=== PATIENT | female | born 1980 | race Caucasian/White ===

== ENCOUNTER 2017-07-21 19:41 | Emergency (ER) | payer SELFPAY ==
[~2017-07-21] VITALS: Ht 157.5 cm; Wt 46.4 kg
[~2017-07-21 19:41] MED LIST: IBUP1TAB7 PO
[2017-07-21 20:10] VITALS: BP 139/82; PULSE 85; RESP 18; TEMP 98.5; O2SAT 97
--- NOTE | 2017-07-21 21:39 | PD ---
HPI Chief Complaint: Head Injury Time Seen by Provider: 21:39 Travel History International Travel<30 days: No Contact w/Intl Traveler<30days: No Traveled to known affect area: No History of Present Illness HPI 36-year-old female came to the emergency room with history of feeling dizzy and lightheaded. This is been going on for past couple days. Yesterday she passed out and hit her head. She had a scalp laceration on the back of her head. However she did not come in then and decided to come in today. Currently she is awake and answering questions appropriately. She went to the restroom to give a urine sample and the gait was steady. Vital signs are stable. Patient does drink alcohol and says that lately she has been drinking a little more than she should. No chest pain or headache. [facility] Past Medical History Narrative Medical List of her past medical, surgical, social and family history is reviewed from the nursing note. Diminished Hearing: No ?: Not LMP: 1 week ago Tubal Ligation: Yes Social History Alcohol Use: Yes Tobacco Use: No Substance Use: No Allergies-Medications (Allergen,Severity, Reaction): Coded Allergies: codeine (Verified Allergy, Unknown, 02/19/17) Comments List of her allergies reviewed from the nursing note. Reported Meds & Prescriptions Reported Meds & Active Scripts Active Macrobid (Nitrofurantoin Monoh/Nitrofur Macro) 100 Mg Cap 100 Mg PO BID 7 Days Ibuprofen 800 Mg Tab 800 Mg PO Q6HR PRN Narrative Medication List of her home medications reviewed from the nursing note. Review of Systems Except as stated in HPI: all other systems reviewed are Neg Neurologic: Positive: Syncope Physical Exam Narrative GENERAL: Awake, alert, mild distress SKIN: Focused skin assessment warm/dry. HEAD: Atraumatic. Normocephalic. EYES: Pupils equal and round. No scleral icterus. No injection or drainage. ENT: No nasal bleeding or discharge. Mucous membranes pink and moist. NECK: Trachea midline. No JVD. CARDIOVASCULAR: Regular rate and rhythm. No murmur appreciated. RESPIRATORY: No accessory muscle use. Clear to auscultation. Breath sounds equal bilaterally. GASTROINTESTINAL: Abdomen soft, non-tender, nondistended. Hepatic and splenic margins not palpable. MUSCULOSKELETAL: No obvious deformities. No clubbing. No cyanosis. No edema. NEUROLOGICAL: Awake and alert. No obvious cranial nerve deficits. Motor grossly within normal limits. Normal speech. PSYCHIATRIC: Appropriate mood and affect; insight and judgment normal. Data Data Last Documented VS Vital Signs Date Time Temp Pulse Resp B/P (MAP) Pulse Ox O2 Delivery O2 Flow Rate FiO2 07/22/17 01:17 07/22/17 00:34 85 16 07/21/17 21:53 98.4 98 Room Air Orders Orders Ct Brain W/O Iv Contrast(Rout) (07/21/17 ) Ed Urine Pregnancytest Poc (07/21/17 20:13) Urinalysis - C+S If Indicated (07/21/17 22:22) Orthostatic Vital Signs (07/21/17 22:22) Electrocardiogram (07/21/17 ) Complete Blood Count With Diff (07/21/17 23:09) Comprehensive Metabolic Panel (07/21/17 23:09) Sodium Chlor 0.9% 1000 Ml Inj (Ns 1000 M (07/21/17 23:15) Urine Culture (07/21/17 22:30) Nitrofurantoin Monohyd Macrocr (Macrobid (07/22/17 00:00) Potassium Chloride (Kcl) (07/22/17 00:15) Ed Discharge Order (07/22/17 00:36) Labs Laboratory Tests Test 07/21/17 22:30 07/21/17 23:20 Urine Color YELLOW Urine Turbidity CLOUDY Urine pH 6.0 Urine Specific [place] 1.025 Urine Protein 30 mg/dL Urine Glucose (UA) NEG mg/dL Urine Ketones 40 mg/dL Urine Occult Blood NEG Urine Nitrite NEG Urine Bilirubin NEG Urine Urobilinogen LESS THAN 2.0 MG/DL Urine Leukocyte Esterase TRACE Urine WBC 2 /hpf Urine Squamous Epithelial Cells 12 /hpf Urine Bacteria MANY /hpf Urine Mucus MANY /lpf Microscopic Urinalysis Comment CULTURE INDICATED White Blood Count 4.4 TH/MM3 Red Blood Count 3.76 MIL/MM3 Hemoglobin 12.4 GM/DL Hematocrit 36.0 % Mean Corpuscular Volume 95.8 FL Mean Corpuscular Hemoglobin 32.9 PG Mean Corpuscular Hemoglobin Concent 34.4 % Red Cell Distribution Width 13.6 % Platelet Count 237 TH/MM3 Mean Platelet Volume 6.8 FL Neutrophils (%) (Auto) 40.3 % Lymphocytes (%) (Auto) 47.9 % Monocytes (%) (Auto) 9.2 % Eosinophils (%) (Auto) 1.3 % Basophils (%) (Auto) 1.3 % Neutrophils # (Auto) 1.8 TH/MM3 Lymphocytes # (Auto) 2.1 TH/MM3 Monocytes # (Auto) 0.4 TH/MM3 Eosinophils # (Auto) 0.1 TH/MM3 Basophils # (Auto) 0.1 TH/MM3 CBC Comment DIFF FINAL Differential Comment Blood Urea Nitrogen 9 MG/DL Creatinine 0.60 MG/DL Random Glucose 123 MG/DL Total Protein 7.7 GM/DL Albumin 3.8 GM/DL Calcium Level 8.7 MG/DL Alkaline Phosphatase 64 U/L Aspartate Amino Transf (AST/SGOT) 50 U/L Alanine Aminotransferase (ALT/SGPT) 42 U/L Total Bilirubin 0.4 MG/DL Sodium Level 140 MEQ/L Potassium Level 3.0 MEQ/L Chloride Level 104 MEQ/L Carbon Dioxide Level 26.0 MEQ/L Anion Gap 10 MEQ/L Estimat Glomerular Filtration Rate 114 ML/MIN [facility] Medical Decision Making Medical Screen Exam Complete: Yes Emergency Medical Condition: Yes Medical Record Reviewed: Yes Interpretation(s) Twelve-lead EKG was reviewed by me. Normal sinus rhythm, right axis deviation, lateral T-wave inversion. Heart rate of 71 bpm. Differential Diagnosis Orthostatic hypertension, intracranial bleed, electrolyte abnormality, dehydration Narrative Course 12:[address] was negative for any intracranial bleed. Patient has sinusitis. Blood test results show hypokalemia. UA is suggestive of some ketones and UTI. Patient was given p.o. potassium replacement and Macrobid. She was given 1 L of IV fluid bolus and repeat orthostatic vital signs have resolved to more normal. I will discharge her home. Procedures EKG Prior to Arrival: No Diagnosis Primary Impression: Orthostatic hypotension Additional Impressions: Syncope Qualified Codes: R55 - Syncope and collapse Hypokalemia UTI (urinary tract infection) Qualified Codes: N39.0 - Urinary tract infection, site not specified Alcohol dependence Qualified Codes: F10.288 - Alcohol dependence with other alcohol-induced disorder Referrals: Primary Care Physician Additional Instructions: Please return to the ER if condition worsens any other new concerns. You need to drink alcohol in moderation and eat healthy and drink lots of fluid. Take the antibiotic as per the prescription direction. Follow-up with your primary care. Med/Other Pt SpecificInfo: Prescription(s) given Scripts Nitrofurantoin Monohydrate Macrocrystals (Macrobid) 100 Mg Cap 100 MG PO BID for Infection for 7 Days, #14 CAP 0 Refills Prov: Christiane Hobbs MD 07/22/17 Disposition: 01 DISCHARGE HOME Condition: Stable Christiane Hobbs MD Jul 21, 2017 21:39
[2017-07-21 21:53] VITALS: BP 151/80; PULSE 87; RESP 16; TEMP 98.4; O2SAT 98
[2017-07-21 23:06] VITALS: BP 159/96; RESP 16
[2017-07-21 23:07] VITALS: BP_SYST 129; BP_SYST 149; BP_DIAS 91; BP_DIAS 93; RESP 16
[2017-07-21] MEDS ORDERED: SODIUM CHLOR 0.9% 1000 ML INJ 1,000 ML IV ONE (23:15)
[2017-07-21 23:19] LABS: BACTERIA, URINE MANY /hpf; BILIRUBIN, URINE NEG (NEG); BLOOD, URINE NEG (NEG); GLUCOSE,URINE NEG (NEG); KETONE, URINE 40 mg/dL (NEG); MUCUS URINE MANY /lpf (OCC); NITRITE,URINE NEG (NEG); SQUAMOUS EPITHELIAL CELL URINE 12 /hpf (0-5); URINE COLOR YELLOW (YELLW/STRAW); URINE LEUKOCYTE ESTERASE TRACE (NEG)
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
[2017-07-21 23:45] LABS: AUTOMATED NEUTROPHIL # 1.8 TH/MM3 (1.8-7.7); BASOPHIL # 0.1 TH/MM3 (0-0.2); BASOPHIL % 1.3 % (0.0-2.0); EOSINOPHIL # 0.1 TH/MM3 (0-0.4); EOSINOPHIL % 1.3 % (0.0-4.0); HEMOGLOBIN 12.4 GM/DL (11.6-15.3); LYMPH % 47.9 % (9.0-44.0); LYMPHOCYTE # 2.1 TH/MM3 (1.0-4.8); MEAN CELL VOLUME 95.8 FL (80.0-100.0); MEAN CORPUSCULAR HEMOGLOBIN 32.9 PG (27.0-34.0); MEAN CORPUSCULAR HGB CONC 34.4 % (32.0-36.0); MEAN PLATELET VOLUME 6.8 FL (7.0-11.0); MONO % 9.2 % (0.0-8.0); MONOCYTE # 0.4 TH/MM3 (0-0.9); NEUT % 40.3 % (16.0-70.0); PLATELET COUNT 237 TH/MM3 (150-450); RED BLOOD COUNT 3.76 MIL/MM3 (4.00-5.30); RED CELL DISTRIBUTION WIDTH 13.6 % (11.6-17.2); WHITE BLOOD COUNT 4.4 TH/MM3 (4.0-11.0)
[2017-07-22] MEDS ORDERED: NITROFURANTOIN MONOHYD MACROCR 100 MG CAP PO ONE
[2017-07-22 00:01] LABS: ALBUMIN 3.8 GM/DL (3.4-5.0); AST (GOT) 50 U/L (15-37); BLOOD UREA NITROGEN 9 MG/DL (7-18); CALCIUM 8.7 MG/DL (8.5-10.1); CHLORIDE 104 MEQ/L (98-107); GLOMERULAR FILTRATION RATE 114 ML/MIN (>89); GLUCOSE,RANDOM 123 MG/DL (74-106); SODIUM (NA) 140 MEQ/L (136-145)
[2017-07-22 00:02] LABS: ALT (GPT) 42 U/L (10-53)
[2017-07-22 00:04] LABS: ALKALINE PHOSPHATASE 64 U/L (45-117); TOTAL BILIRUBIN ADULT 0.4 MG/DL (0.2-1.0); TOTAL PROTEIN 7.7 GM/DL (6.4-8.2)
[2017-07-22] MEDS ORDERED: POTASSIUM CHLORIDE 20 MEQ CONTROLLED RELEASE TAB PO ONE (00:15)
[2017-07-22 00:34] VITALS: BP_SYST 129; BP_SYST 135; BP_SYST 151; BP_DIAS 84; BP_DIAS 92; BP_DIAS 98; RESP 16
[2017-07-22] MEDS ORDERED: MACR100C2 PO (00:39)
--- NOTE | 2017-07-22 16:11 | EKG ---
Date Performed: 07/21/2017 Time Performed: 22:59:40 PTAGE: 36 years EKG: ECTOPIC ATRIAL RHYTHM MARKED RIGHT AXIS DEVIATION MODERATE ST DEPRESSION ABNORMAL ECG NO PREVIOUS TRACING DOCTOR: Segundo uQintanilla Interpretating Date/Time 07/22/2017 16:08:23
== END 2017-07-22 01:17 | disposition home or self-care (01) ==
LOC: NED 19:41 → NEPD 07-22 01:17
DX: I95.1 Orthostatic hypotension (principal); E87.6 Hypokalemia; N39.0 Urinary tract infection, site not specified; F10.288 Alcohol dependence with other alcohol-induced disorder
CPT/HCPCS: 70450; 80053; 81001; 84703; 85025; 87086; 93005; 96360; 99284; J7030

== ENCOUNTER 2017-08-04 17:35 | Emergency (ER) | payer OTHER ==
[~2017-08-04 17:35] MED LIST changes: +MACR100C2 PO
[2017-08-04 17:40] VITALS: BP 113/66; PULSE 99; RESP 16; TEMP 98.9; O2SAT 97
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
[2017-08-04 18:23] LABS: AUTOMATED NEUTROPHIL # 6.6 TH/MM3 (1.8-7.7); BASOPHIL # 0.1 TH/MM3 (0-0.2); EOSINOPHIL # 0.1 TH/MM3 (0-0.4); EOSINOPHIL % 0.7 % (0.0-4.0); HEMATOCRIT 40.4 % (35.0-46.0); HEMOGLOBIN 13.7 GM/DL (11.6-15.3); LYMPH % 14.1 % (9.0-44.0); LYMPHOCYTE # 1.2 TH/MM3 (1.0-4.8); MEAN CELL VOLUME 96.4 FL (80.0-100.0); MEAN CORPUSCULAR HEMOGLOBIN 32.7 PG (27.0-34.0); MEAN CORPUSCULAR HGB CONC 33.9 % (32.0-36.0); MEAN PLATELET VOLUME 6.5 FL (7.0-11.0); MONO % 8.7 % (0.0-8.0); MONOCYTE # 0.8 TH/MM3 (0-0.9); NEUT % 75.5 % (16.0-70.0); PLATELET COUNT 255 TH/MM3 (150-450); RED BLOOD COUNT 4.19 MIL/MM3 (4.00-5.30); RED CELL DISTRIBUTION WIDTH 14.1 % (11.6-17.2); WHITE BLOOD COUNT 8.7 TH/MM3 (4.0-11.0)
[2017-08-04 18:44] LABS: ALT (GPT) 87 U/L (10-53); AST (GOT) 180 U/L (15-37); BICARBONATE 23.1 MEQ/L (21.0-32.0); BLOOD UREA NITROGEN 17 MG/DL (7-18); CALCIUM 8.5 MG/DL (8.5-10.1); CHLORIDE 108 MEQ/L (98-107); CREATININE 0.61 MG/DL (0.50-1.00); GLOMERULAR FILTRATION RATE 112 ML/MIN (>89); GLUCOSE,RANDOM 80 MG/DL (74-106); SODIUM (NA) 144 MEQ/L (136-145)
[2017-08-04 18:54] LABS: ALKALINE PHOSPHATASE 84 U/L (45-117); TOTAL BILIRUBIN ADULT 0.5 MG/DL (0.2-1.0); TOTAL PROTEIN 8.4 GM/DL (6.4-8.2)
[2017-08-04 18:56] LABS: ACETAMINOPHEN LESS THAN 2.0 MCG/ML (10.0-30.0)
[2017-08-04] MEDS ORDERED: ONDANSETRON ODT 4 MG TAB PO PRN (19:15)
[2017-08-04] MEDS ORDERED: LORazepam 2 MG TAB PO PRN (19:15)
[2017-08-04] MEDS ORDERED: FLUMAZENIL 0.5 MG/5 ML VIAL IV PUSH PRN (19:15)
[2017-08-04] MEDS ORDERED: LORazepam 2 MG/ML VIAL IV PUSH PRN ×4 (19:15)
[2017-08-04] MEDS: LORazepam 1 MG TAB PO PRN (23:29)
[2017-08-05] MEDS: LORazepam 1 MG TAB PO PRN (08:36)
--- NOTE | 2017-08-05 09:04 | PD ---
Physical Exam Time Seen by Provider: 09:02 Narrative The patient is clinically sober at this time. I reevaluated the patient and she reports suicidal ideation. She has no plan. She has history of suicidal attempt by cutting her wrists and overdosing. She recently lost her job, got kicked out of the place that she was living out and her significant other is in skilled nursing. She is feeling down and depressed. She is requesting psychiatric evaluation. Data Data Last Documented VS Vital Signs Date Time Temp Pulse Resp B/P (MAP) Pulse Ox O2 Delivery O2 Flow Rate FiO2 08/04/17 17:40 98.9 99 16 113/66 (82) 97 Room Air Orders Orders Complete Blood Count With Diff (08/04/17 17:45) Comprehensive Metabolic Panel (08/04/17 17:45) Thyroid Stimulating Hormone (08/04/17 17:45) Psych Screen (08/04/17 17:45) Drug Screen, Random Urine (08/04/17 17:45) Alcohol (Ethanol) (08/04/17 17:45) Salicylates (Aspirin) (08/04/17 17:45) Tylenol (Acetaminophen) (08/04/17 17:45) Ed Urine Pregnancytest Poc (08/04/17 18:16) Alcohol Withdrawal Asmt-Ciwa ONCE (08/04/17 19:02) Ondansetron Odt (Zofran Odt) (08/04/17 19:15) Flumazenil Inj (Romazicon Inj) (08/04/17 19:15) Lorazepam (Ativan) (08/04/17 19:15) Lorazepam Inj (Ativan Inj) (08/04/17 19:15) Lorazepam (Ativan) (08/04/17 19:15) Lorazepam Inj (Ativan Inj) (08/04/17 19:15) Lorazepam Inj (Ativan Inj) (08/04/17 19:15) Lorazepam Inj (Ativan Inj) (08/04/17 19:15) Diet Regular Basic (08/05/17 Breakfast) Labs Laboratory Tests Test 08/04/17 18:03 08/04/17 21:30 White Blood Count 8.7 TH/MM3 Red Blood Count 4.19 MIL/MM3 Hemoglobin 13.7 GM/DL Hematocrit 40.4 % Mean Corpuscular Volume 96.4 FL Mean Corpuscular Hemoglobin 32.7 PG Mean Corpuscular Hemoglobin Concent 33.9 % Red Cell Distribution Width 14.1 % Platelet Count 255 TH/MM3 Mean Platelet Volume 6.5 FL Neutrophils (%) (Auto) 75.5 % Lymphocytes (%) (Auto) 14.1 % Monocytes (%) (Auto) 8.7 % Eosinophils (%) (Auto) 0.7 % Basophils (%) (Auto) 1.0 % Neutrophils # (Auto) 6.6 TH/MM3 Lymphocytes # (Auto) 1.2 TH/MM3 Monocytes # (Auto) 0.8 TH/MM3 Eosinophils # (Auto) 0.1 TH/MM3 Basophils # (Auto) 0.1 TH/MM3 CBC Comment DIFF FINAL Differential Comment Blood Urea Nitrogen 17 MG/DL Creatinine 0.61 MG/DL Random Glucose 80 MG/DL Total Protein 8.4 GM/DL Albumin 4.0 GM/DL Calcium Level 8.5 MG/DL Alkaline Phosphatase 84 U/L Aspartate Amino Transf (AST/SGOT) 180 U/L Alanine Aminotransferase (ALT/SGPT) 87 U/L Total Bilirubin 0.5 MG/DL Sodium Level 144 MEQ/L Potassium Level 3.9 MEQ/L Chloride Level 108 MEQ/L Carbon Dioxide Level 23.1 MEQ/L Anion Gap 13 MEQ/L Estimat Glomerular Filtration Rate 112 ML/MIN Thyroid Stimulating Hormone 3rd Gen 0.385 uIU/ML Salicylates Level LESS THAN 1.7 MG/DL Acetaminophen Level LESS THAN 2.0 MCG/ML Ethyl Alcohol Level 322 MG/DL Urine Opiates Screen NEG Urine Barbiturates Screen NEG Urine Amphetamines Screen NEG Urine Benzodiazepines Screen NEG Urine Cocaine Screen NEG Urine Cannabinoids Screen NEG [facility] Supervised Visit with JORGE: No Narrative Course The patient is clinically sober at this time. I reevaluated the patient and she reports suicidal ideation. She has no plan. She has history of suicidal attempt by cutting her wrists and overdosing. She recently lost her job, got kicked out of the place that she was living out and her significant other is in skilled nursing. She is feeling down and depressed. The [place] act has been rescinded at this time and the patient is here now for voluntary psych evaluation. Psych screen pending. Diagnosis Primary Impression: Substance abuse Additional Impression: Suicidal ideation Scripts No Active Prescriptions or Reported Meds Sheri Castaneda Aug 05, 2017 09:04
[2017-08-05 12:00] VITALS: BP 124/62; PULSE 78; RESP 16; TEMP 98.2; O2SAT 98
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
--- NOTE | 2017-08-05 16:50 | PD ---
Physical Exam Time Seen by Provider: 16:47 JOSSY Mata has evaluated patient, lifted the Sargent act and cleared the patient for discharge. Data Data Last Documented VS Vital Signs Date Time Temp Pulse Resp B/P (MAP) Pulse Ox O2 Delivery O2 Flow Rate FiO2 08/05/17 12:00 Room Air 08/04/17 17:40 98.9 99 16 113/66 (82) 97 Orders Orders Complete Blood Count With Diff (08/04/17 17:45) Comprehensive Metabolic Panel (08/04/17 17:45) Thyroid Stimulating Hormone (08/04/17 17:45) Psych Screen (08/04/17 17:45) Drug Screen, Random Urine (08/04/17 17:45) Alcohol (Ethanol) (08/04/17 17:45) Salicylates (Aspirin) (08/04/17 17:45) Tylenol (Acetaminophen) (08/04/17 17:45) Ed Urine Pregnancytest Poc (08/04/17 18:16) Alcohol Withdrawal Asmt-Ciwa ONCE (08/04/17 19:02) Ondansetron Odt (Zofran Odt) (08/04/17 19:15) Flumazenil Inj (Romazicon Inj) (08/04/17 19:15) Lorazepam (Ativan) (08/04/17 19:15) Lorazepam Inj (Ativan Inj) (08/04/17 19:15) Lorazepam (Ativan) (08/04/17 19:15) Lorazepam Inj (Ativan Inj) (08/04/17 19:15) Lorazepam Inj (Ativan Inj) (08/04/17 19:15) Lorazepam Inj (Ativan Inj) (08/04/17 19:15) Diet Regular Basic (08/05/17 Breakfast) Labs Laboratory Tests Test 08/04/17 18:03 08/04/17 21:30 White Blood Count 8.7 TH/MM3 Red Blood Count 4.19 MIL/MM3 Hemoglobin 13.7 GM/DL Hematocrit 40.4 % Mean Corpuscular Volume 96.4 FL Mean Corpuscular Hemoglobin 32.7 PG Mean Corpuscular Hemoglobin Concent 33.9 % Red Cell Distribution Width 14.1 % Platelet Count 255 TH/MM3 Mean Platelet Volume 6.5 FL Neutrophils (%) (Auto) 75.5 % Lymphocytes (%) (Auto) 14.1 % Monocytes (%) (Auto) 8.7 % Eosinophils (%) (Auto) 0.7 % Basophils (%) (Auto) 1.0 % Neutrophils # (Auto) 6.6 TH/MM3 Lymphocytes # (Auto) 1.2 TH/MM3 Monocytes # (Auto) 0.8 TH/MM3 Eosinophils # (Auto) 0.1 TH/MM3 Basophils # (Auto) 0.1 TH/MM3 CBC Comment DIFF FINAL Differential Comment Blood Urea Nitrogen 17 MG/DL Creatinine 0.61 MG/DL Random Glucose 80 MG/DL Total Protein 8.4 GM/DL Albumin 4.0 GM/DL Calcium Level 8.5 MG/DL Alkaline Phosphatase 84 U/L Aspartate Amino Transf (AST/SGOT) 180 U/L Alanine Aminotransferase (ALT/SGPT) 87 U/L Total Bilirubin 0.5 MG/DL Sodium Level 144 MEQ/L Potassium Level 3.9 MEQ/L Chloride Level 108 MEQ/L Carbon Dioxide Level 23.1 MEQ/L Anion Gap 13 MEQ/L Estimat Glomerular Filtration Rate 112 ML/MIN Thyroid Stimulating Hormone 3rd Gen 0.385 uIU/ML Salicylates Level LESS THAN 1.7 MG/DL Acetaminophen Level LESS THAN 2.0 MCG/ML Ethyl Alcohol Level 322 MG/DL Urine Opiates Screen NEG Urine Barbiturates Screen NEG Urine Amphetamines Screen NEG Urine Benzodiazepines Screen NEG Urine Cocaine Screen NEG Urine Cannabinoids Screen NEG MDM Supervised Visit with JORGE: No Narrative Course JOSSY Roberson has evaluated patient, lifted the Sargent act and cleared the patient for discharge. Patient contracts safety. Denies suicidal or homicidal ideations. Patient will be provided community resource packet to [facility] for follow-up. Has friends and family for support. Patient was medically cleared by alternate provider prior to psych screening. Patient has been evaluated by psychiatry and and is now cleared for discharge. Diagnosis Primary Impression: Alcohol abuse Additional Impression: Substance abuse Ruled Out: Suicidal ideation Referrals: [facility] (Out patient) [facility] Primary Care Physician Psychiatrist Perfect[facility] Patient Instructions: Abuse of Alcohol (ED), Alcohol Dependence (ED), Alcohol Intoxication (ED), General Instructions, Mood Disorders (ED), Polysubstance Abuse (ED) Additional Instruction: Contract safety to your self and others Stop drinking alcohol Follow-up in the community with community support, such as Alcoholics Anonymous Follow-up with psychiatry Follow-up with primary care provider Follow-up with Santana Arshad Return to the emergency department immediately with worsening of symptoms Med/Other Pt SpecificInfo: No Change to Meds, No Meds Exist/No RX given Scripts No Active Prescriptions or Reported Meds Disposition: 01 DISCHARGE HOME Condition: Stable Sheri Castaneda [employer] Aug 05, 2017 16:50
[2017-08-05 17:00] VITALS: BP 118/78; PULSE 82; RESP 16; O2SAT 98
== END 2017-08-05 17:31 | disposition home or self-care (01) ==
LOC: NEPD 17:35 → NEPJ 08-05 17:31
DX: F10.129 Alcohol abuse with intoxication, unspecified (principal); F19.10 Other psychoactive substance abuse, uncomplicated; Y90.8 Blood alcohol level of 240 mg/100 ml or more; F31.9 Bipolar disorder, unspecified; F41.9 Anxiety disorder, unspecified; I25.2 Old myocardial infarction; Z88.5 Allergy status to narcotic agent
CPT/HCPCS: 80053; 80307; 84443; 84703; 85025; 99283

== ENCOUNTER 2017-08-21 14:07 | Emergency (ER) | payer SELFPAY ==
[~2017-08-21] VITALS: Ht 157.5 cm; Wt 48.0 kg
[2017-08-21 14:16] VITALS: BP 94/53; PULSE 89; RESP 15; TEMP 98.2; O2SAT 96
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
--- NOTE | 2017-08-21 16:22 | RADRPT ---
EXAM DATE/TIME: 08/21/2017 15:59 [facility] COMPARISON: CT BRAIN W/O CONTRAST, July 21, 2017, 22:50. INDICATIONS : Altered mental status, right paraorbital swelling. RADIATION DOSE: 45.79 CTDIvol (mGy) MEDICAL HISTORY : Cardiovascular disease. SURGICAL HISTORY : Tubal ligation. ENCOUNTER: Initial ACUITY: 1 day PAIN SCALE: 0/10 LOCATION: distal TECHNIQUE: Multiple contiguous axial images were obtained of the head. Using automated exposure control and adj ustment of the mA and/or kV according to patient size, radiation dose was kept as low as reasonably a chievable to obtain optimal diagnostic quality images. DICOM format image data is available electro nically for review and comparison. FINDINGS: CEREBRUM: The ventricles are normal. No evidence of midline shift, mass lesion, hemorrhage or acute infarction . No extra-axial fluid collections are seen. POSTERIOR FOSSA: The cerebellum and brainstem are intact. The 4th ventricle is midline. The cerebellopontine angle i s unremarkable. EXTRACRANIAL: There is a right frontal and ethmoid mucoperiosteal thickening, stable from the prior study. SKULL: The calvaria is intact. No evidence of skull fracture. CONCLUSION: 1. Stable noncontrast head CT without acute intracranial abnormality identified. 2. Chronic right frontal and ethmoid mucoperiosteal thickening. Ramakrishna Romero MD on August 21, 2017 at 16:17 Board Certified Radiologist. This report was verified electronically.
--- NOTE | 2017-08-21 16:39 | RADRPT ---
EXAM DATE/TIME: 08/21/2017 15:59 [facility] COMPARISON: CT BRAIN W/O CONTRAST, August 21, 2017, 15:59. INDICATIONS : Right periorbital bruising and swelling. RADIATION DOSE: 23.28 CTDIvol (mGy) MEDICAL HISTORY : Myocardial infarction. SURGICAL HISTORY : Tubal ligation. ENCOUNTER: Initial ACUITY: 1 day PAIN SCORE: 6/10 LOCATION: Right facial TECHNIQUE: Volumetric scanning of the facial bones was performed. Using automated exposure control and adjustme nt of the mA and/or kV according to patient size, radiation dose was kept as low as reasonably achiev able to obtain optimal diagnostic quality images. DICOM format image data is available electronicall y for review and comparison. FINDINGS: ORBITS: The orbital and infraorbital osseous structures are intact. The retroconal structures have a normal configuration. No radiopaque foreign bodies are seen. NASAL BONE: There are 2 fractures of the nasal bone, mildly displaced involving the anterior and right base. The maxillary spine is intact. ZYGOMATIC ARCHES: Symmetric without evidence of fracture. SINUSES: There is opacification of the right frontal sinus and opacified anterior right ethmoid air cells. Mi ld mucosal thickening in the right maxillary sinus and a rounded area of lucency adjacent to the mola r root and represent a peridental abscess. NASAL CAVITY: The nasal septum is intact and midline. The lacrimal ducts are intact. SOFT TISSUES: No radiopaque foreign bodies seen. No soft-tissue swelling is seen. INTRACRANIAL: No intracranial air seen. CRIBIFORM PLATE: Grossly intact. CONCLUSION: 1. Mildly displaced nasal bone fractures. 2. The orbital rim is intact bilaterally. 3. Right frontal and right ethmoid sinus disease. 4. Mucosal thickening in the lower right maxillary sinus with rounded low density lesion in the poste rior right maxilla, possibly representing a peridental abscess. Johan Canales MD on August 21, 2017 at 16:29 Board Certified Radiologist. This report was verified electronically.
[2017-08-21] MEDS ORDERED: THIAMINE HCL 100 MG TAB PO ONE (17:00)
== END 2017-08-21 18:07 | disposition home or self-care (01) ==
LOC: NEPD 14:07
DX: F10.129 Alcohol abuse with intoxication, unspecified (principal); S02.2XXA Fracture of nasal bones, initial encounter for closed fracture; X58.XXXA Exposure to other specified factors, initial encounter
CPT/HCPCS: 70450; 70486; 84703; 99283

== ENCOUNTER 2017-12-24 14:55 | Inpatient (IN) ==
[2017-12-24] MEDS ORDERED: Sod Chloride 0.9% Inj 1,000 ML IV.SIG ONE (19:26)
[2017-12-24] MEDS ORDERED: Ketorolac Inj 30 MG/ML (IVP) Vial IV.PUSH ONE (19:26)
[2017-12-24 20:07] LABS: Baso # (Auto) 0.1 th/mm3 (0.0-0.2); Baso % (Auto) 0.9 % (0.0-2.0); Eos % (Auto) 0.4 % (0.0-4.0); Hematocrit 26.9 % (35.0-46.0); Hemoglobin 8.9 gm/dL (11.6-15.3); Lymph # (Auto) 1.8 th/mm3 (1.0-4.8); Lymph % (Auto) 24.9 % (9.0-44.0); Mean Corpuscular HGB Conc 33.2 % (32.0-36.0); Mean Corpuscular Hemoglobin 31.2 pg (27.0-34.0); Mean Corpuscular Volume 94.1 fL (80.0-100.0); Mean Platelet Volume 7.1 fL (7.0-11.0); Mono # (Auto) 0.6 th/mm3 (0.0-0.9); Mono % (Auto) 7.7 % (0.0-8.0); Neut # (Auto) 4.9 th/mm3 (1.8-7.7); Neut % (Auto) 66.1 % (16.0-70.0); Platelet Count 229 th/mm3 (150-450); Red Blood Count 2.86 mil/mm3 (4.00-5.30); Red Cell Distribution Width 13.7 % (11.6-17.2); White Blood Count 7.3 th/mm3 (4.0-11.0)
[2017-12-24 20:25] LABS: Bacteria,Urine Moderate /hpf; Bilirubin,Urine Negative (Negative); Clarity,Urine Cloudy (Clear); Color,Urine Yellow (Yellw/Straw); Glucose,Urine (UA) Negative (Negative); Leukocyte Esterase,Urine Negative (Negative); Mucus,Urine Few /lpf (Occasional); Nitrite,Urine Negative (Negative); Specific Gravity,Urine 1.026 (1.002-1.035); Squamous Epithelial Cell,Urine 43 /hpf (0-5)
[2017-12-24 20:31] LABS: Albumin 3.1 g/dL (3.4-5.0); Anion Gap 14 meq/L (5-15); Aspartate Aminotransferase 41 U/L (15-37); Blood Urea Nitrogen 19 mg/dL (7-18); Chloride 107 meq/L (98-107); Glomerular Filtration Rate Greater Than 89 mL/min (>89); Glucose,Random 83 mg/dL (74-106); Lipase 114 U/L (73-393); Potassium 3.6 meq/L (3.5-5.1); Sodium 139 meq/L (136-145)
[2017-12-24 20:35] LABS: Alanine Aminotransferase 30 U/L (10-53); Alkaline Phosphatase 68 U/L (45-117); Total Protein 6.4 g/dL (6.4-8.2)
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
[2017-12-24] MEDS ORDERED: Morphine Inj 4 MG/ML Vial IV.PUSH ONE (20:49)
[2017-12-24] MEDS ORDERED: Acetaminophen 325 MG Tablet PO PRN (21:06)
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
[2017-12-25] MEDS ORDERED: Morphine Sulfate Inj 2 MG/ML Vial IV.PUSH ONE (01:11)
[2017-12-25] MEDS ORDERED: Chlorhexidine Gluconate 2% 1 Pack (2 Cloths) TOPICAL PRN (04:00)
[2017-12-25] MEDS: Morphine Sulfate Inj 2 MG/ML Vial IV.PUSH PRN ×8 (04:40→22:00)
[2017-12-25] MEDS: Chlorhexidine Gluconate 2% 1 Pack (2 Cloths) TOPICAL SCH (06:28)
[2017-12-25] MEDS: Docusate Sodium 100 MG Capsule PO SCH ×2 (09:04→20:04)
[2017-12-25 10:33] LABS: Hematocrit 23.1 % (35.0-46.0); Hemoglobin 7.8 gm/dL (11.6-15.3)
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
[2017-12-25 14:58] LABS: INR 1.1 Ratio; Prothrombin Time 10.7 sec (9.8-11.6)
[2017-12-25] MEDS ORDERED: fentaNYL Citrate Inj 100 MCG/2 ML Ampul ONE (15:37)
[2017-12-25] MEDS ORDERED: ceFAZolin 1 GM Premix Inj 2 GM/100 ML FROZ.PIGGY IV.SIG ONE (16:38)
--- NOTE | 2017-12-25 16:51 | P.RAD ---
Post Procedure Progress Note - Pre Procedure Diagnosis (1) Splenic laceration - Post Procedure Diagnosis (1) Splenic laceration - Procedure Information Procedure Date: 12/25/17 Supervising Radiologist: Young Harris MD Estimated blood loss (mL): 3 Anesthesia: Local, Analgesia, Conscious Sedation - Plan of Activity Patient to Unit: Critical Care Patient Condition: Good See PACS Report for procedural detail/treatment. Vascular - Arterial Procedure left Celiac Procedure: Angiogram, Embolization (splenic artery) - Additional Information Findings: No active hemorrhage. Empiric embolization per trauma surgery service request ( worsening abdominal pain with dropping H/H)
[2017-12-25] MEDS: Pantoprazole Inj 40 MG Vial IV.PUSH SCH (17:38)
[2017-12-25 21:31] LABS: Hematocrit 24.5 % (35.0-46.0); Hemoglobin 8.2 gm/dL (11.6-15.3)
[2017-12-26] MEDS: Morphine Sulfate Inj 2 MG/ML Vial IV.PUSH PRN ×4 (00:15→08:12)
[2017-12-26 05:23] LABS: Baso # (Auto) 0.1 th/mm3 (0.0-0.2); Baso % (Auto) 0.8 % (0.0-2.0); Eos # (Auto) 0.1 th/mm3 (0.0-0.4); Eos % (Auto) 0.9 % (0.0-4.0); Hematocrit 26.3 % (35.0-46.0); Hemoglobin 8.8 gm/dL (11.6-15.3); Lymph # (Auto) 1.3 th/mm3 (1.0-4.8); Lymph % (Auto) 13.1 % (9.0-44.0); Mean Corpuscular HGB Conc 33.6 % (32.0-36.0); Mean Corpuscular Hemoglobin 31.4 pg (27.0-34.0); Mean Corpuscular Volume 93.3 fL (80.0-100.0); Mean Platelet Volume 7.6 fL (7.0-11.0); Mono # (Auto) 0.9 th/mm3 (0.0-0.9); Mono % (Auto) 9.1 % (0.0-8.0); Neut # (Auto) 7.3 th/mm3 (1.8-7.7); Neut % (Auto) 76.1 % (16.0-70.0); Platelet Count 217 th/mm3 (150-450); Red Blood Count 2.82 mil/mm3 (4.00-5.30); Red Cell Distribution Width 13.4 % (11.6-17.2); White Blood Count 9.6 th/mm3 (4.0-11.0)
[2017-12-26 05:51] LABS: Alanine Aminotransferase 21 U/L (10-53); Alkaline Phosphatase 82 U/L (45-117); Anion Gap 8 meq/L (5-15); Aspartate Aminotransferase 26 U/L (15-37); Blood Urea Nitrogen 3 mg/dL (7-18); Calcium 7.9 mg/dL (8.5-10.1); Carbon Dioxide 27.4 meq/L (21.0-32.0); Chloride 104 meq/L (98-107); Glomerular Filtration Rate Greater Than 89 mL/min (>89); Glucose,Random 98 mg/dL (74-106); Potassium 3.3 meq/L (3.5-5.1); Sodium 139 meq/L (136-145); Total Protein 6.3 g/dL (6.4-8.2)
[2017-12-26] MEDS: Chlorhexidine Gluconate 2% 1 Pack (2 Cloths) TOPICAL SCH (06:37)
[2017-12-26] MEDS: Pantoprazole Inj 40 MG Vial IV.PUSH SCH (08:12)
[2017-12-26] MEDS: Docusate Sodium 100 MG Capsule PO SCH ×2 (08:12→20:08)
[2017-12-26] MEDS ORDERED: Morphine Sulfate Inj 2 MG/ML Vial IV.PUSH PRN (09:31)
--- NOTE | 2017-12-26 09:59 | IR ---
EXAM DATE: 12/25/2017 5:36 PM EDT AGE/SEX: 37 years / Female INDICATIONS: Patient has abdominal pain. Patient states she fell and woke up on the floor. CLINICAL DATA: This is the patient's initial encounter. Patient reports that signs and symptoms have been present for 1 day and indicates a pain score of 6/10. MEDICAL/SURGICAL HISTORY: . Mandible fracture, tooth abscess. None. COMPARISON: No prior exams available for comparison. FLUORO TIME (min): 9.24 IMAGE SERIES: 5 ACCESS SITE: Right femoral artery SEDATION TIME (min): 60 CONTRAST (cc): 80 Visipaque (iodixanol) MEDICATION(S): 5 mg midazolam (Versed) IV ; 100 mcg fentanyl (Sublimaze) IV ; ; ; Intra-procedural antibiotics were given as prescribed above. DEVICE(S): Splenic artery 6*3 tornado coil 3 each ; Splenic artery 7*3 tornado coil 3 each ; Splenic artery 8*5 tornado coil 3 each Splenic artery 5*5 coil ; Right common femoral artery Perclose ; ; ; . . PROCEDURE : 1. Ultrasound-guided puncture of the access site. 2. Conscious sedation with continuous EKG and Oximetry monitoring. 3. Angiography of the splenic artery 4. Coil embolization of the splenic artery EXAM DATE: 12/25/2017 5:36 PM EDT AGE/SEX: 37 years / Female INDICATIONS: Patient has abdominal pain. Patient states she fell and woke up on the floor. CLINICAL DATA: This is the patient's initial encounter. Patient reports that signs and symptoms have been present for 1 day and indicates a pain score of 6/10. MEDICAL/SURGICAL HISTORY: . Mandible fracture, tooth abscess. None. COMPARISON: No prior exams available for comparison. FLUORO TIME (min): 924 IMAGE SERIES: 5 ACCESS SITE: Right femoral artery SEDATION TIME (min): 60 CONTRAST (cc): 80 Visipaque (iodixanol) MEDICATION(S): 5 mg midazolam (Versed) IV 100 mcg fentanyl (Sublimaze) IV Intra-procedural antibiotics were given as prescribed above. DEVICE(S): Splenic artery 6*3 tornado coil 3 each Splenic artery 7*3 tornado coil 3 each Splenic artery 8*5 tornado coil 3 each Splenic artery 5*5 coil Right common femoral artery Perclose . . PROCEDURE : 1. Ultrasound-guided puncture of the access site. 2. Angiography of the access site prior to closure device. 3. Conscious sedation with continuous EKG and Oximetry monitoring. 4. Percutaneous closure of the access site. 5. Angiography of the splenic artery 6. Coil embolization of the splenic artery The risks, benefits and alternatives to the procedure were explained and verbal and written consent w as obtained. The site was prepped in sterile fashion. Full sterile technique was used, including ca p, mask, sterile gloves and gown and a large sterile sheet. Hand hygiene and 2% chlorhexidine and/or betadine/alcohol prep was utilized per protocol for cutaneous antisepsis. Sterile gel and sterile p robe cover were utilized for ultrasound guidance. The skin and subcutaneous tissues were infiltrated with local anesthetic solution. With ultrasound and fluoroscopic guidance the selected artery was punctured and a vascular sheath was placed. Angiography of the common femoral artery was performed for evaluation prior to percutaneous closure device placement. A hook catheter was manipulated up into the origin of the celiac axis. Position was confirmed with po sitive contrast. Catheter and wire were manipulated out into the splenic artery pass the pancreatic b ranch. Contrast injection showed normal arborization of the splenic artery with no active hemorrhage. However, case was discussed with the trauma surgery service. Concern for ongoing splenic hemorrhage with increasing abdominal pain and falling hematocrit. Empiric embolization requested. A series of Tornado coils were deployed in the splenic vein to cessation of antegrade flow. A small, proximal branch to the lower pole of the spleen maintained antegrade flow however, the laceration whi ch towards the upper pole of the spleen so no further embolization was pursued. Hemostasis was obtained with the prescribed medicated closure device. Conscious sedation was perform ed with the prescribed dosages and duration as above in the presence of an independent trained radiol ogy nurse to assist in the monitoring of the patient. EKG and oximetry remained stable throughout th e procedure. CONCLUSION: Empiric splenic embolization for splenic laceration as above Electronically signed by: Young Harris MD 12/26/2017 9:57 AM EDT
[2017-12-26 10:17] LABS: Hematocrit 27.3 % (35.0-46.0); Hemoglobin 9.4 gm/dL (11.6-15.3)
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
[2017-12-26] MEDS: chlordiazePOXIDE 25 MG Capsule PO SCH ×2 (15:34→23:57)
[2017-12-26 15:48] LABS: Hematocrit 25.4 % (35.0-46.0); Hemoglobin 8.7 gm/dL (11.6-15.3)
[2017-12-27] MEDS: Chlorhexidine Gluconate 2% 1 Pack (2 Cloths) TOPICAL SCH (05:12)
[2017-12-27] MEDS: Pantoprazole Inj 40 MG Vial IV.PUSH SCH (08:09)
[2017-12-27] MEDS: chlordiazePOXIDE 25 MG Capsule PO SCH (08:09)
[2017-12-27] MEDS: Docusate Sodium 100 MG Capsule PO SCH (08:09)
[2017-12-27 09:34] LABS: Baso # (Auto) 0.1 th/mm3 (0.0-0.2); Baso % (Auto) 0.9 % (0.0-2.0); Eos # (Auto) 0.2 th/mm3 (0.0-0.4); Eos % (Auto) 2.4 % (0.0-4.0); Hematocrit 24.8 % (35.0-46.0); Hemoglobin 8.5 gm/dL (11.6-15.3); Lymph # (Auto) 1.5 th/mm3 (1.0-4.8); Lymph % (Auto) 18.9 % (9.0-44.0); Mean Corpuscular HGB Conc 34.2 % (32.0-36.0); Mean Corpuscular Hemoglobin 31.7 pg (27.0-34.0); Mean Corpuscular Volume 92.7 fL (80.0-100.0); Mean Platelet Volume 7.7 fL (7.0-11.0); Mono # (Auto) 0.9 th/mm3 (0.0-0.9); Neut # (Auto) 5.3 th/mm3 (1.8-7.7); Neut % (Auto) 66.8 % (16.0-70.0); Platelet Count 218 th/mm3 (150-450); Red Blood Count 2.68 mil/mm3 (4.00-5.30); Red Cell Distribution Width 13.3 % (11.6-17.2); White Blood Count 7.9 th/mm3 (4.0-11.0)
[2017-12-27 09:55] LABS: Albumin 2.8 g/dL (3.4-5.0); Anion Gap 9 meq/L (5-15); Blood Urea Nitrogen 6 mg/dL (7-18); Calcium 8.7 mg/dL (8.5-10.1); Carbon Dioxide 26.3 meq/L (21.0-32.0); Chloride 103 meq/L (98-107); Glomerular Filtration Rate Greater Than 89 mL/min (>89); Glucose,Random 103 mg/dL (74-106); Potassium 3.8 meq/L (3.5-5.1); Sodium 138 meq/L (136-145)
[2017-12-27 10:00] LABS: Alanine Aminotransferase 15 U/L (10-53); Alkaline Phosphatase 68 U/L (45-117); Aspartate Aminotransferase 18 U/L (15-37); Total Protein 6.1 g/dL (6.4-8.2)
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
== END 2017-12-27 14:40 | disposition home or self-care (01) ==
LOC: NEPC 14:55 → NEDA 20:46 → NEDH 12-25 02:26 → N03 12-25 06:35 → N06 12-26 11:00
PROVIDERS: ADMIT Surgery; ATTEND Surgery

== ENCOUNTER 2018-01-29 11:09 | Observation (INO) ==
[2018-01-29] MEDS ORDERED: Morphine Sulfate Inj 2 MG/ML Vial IV.PUSH ONE (11:20)
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
[2018-01-29] MEDS ORDERED: Sod Chloride 0.9% Inj 1,000 ML IV.SIG SCH (11:30)
--- NOTE | 2018-01-29 12:01 | XR ---
EXAM DATE: 01/29/2018 11:26 AM EDT AGE/SEX: 37 years / Female INDICATIONS: . Awoke this morning with pain in chest, ribs, jaw, orbits CLINICAL DATA: This is the patient's initial encounter. Patient reports that signs and symptoms have been present for 1 day and indicates a pain score of Nonresponsive. MEDICAL/SURGICAL HISTORY: . fractured spleen . coils for splenic lacerations [place] [facility] [place]. . FINDINGS: PA and lateral views of the chest demonstrate the lungs to be symmetrically aerated without evidence of mass, infiltrate or effusion. The cardiomediastinal contours are unremarkable. Osseous structures are intact. Coils left upper quadrant likely within the splenic vasculature. CONCLUSION: No acute cardiopulmonary disease. Electronically signed by: Dustin Stauffer MD 01/29/2018 11:59 AM EDT
[2018-01-29 12:04] LABS: Baso # (Auto) 0.1 th/mm3 (0.0-0.2); Eos % (Auto) 0.3 % (0.0-4.0); Hematocrit 36.4 % (35.0-46.0); Hemoglobin 11.8 gm/dL (11.6-15.3); Lymph # (Auto) 1.2 th/mm3 (1.0-4.8); Lymph % (Auto) 11.2 % (9.0-44.0); Mean Corpuscular HGB Conc 32.3 % (32.0-36.0); Mean Corpuscular Hemoglobin 29.8 pg (27.0-34.0); Mean Corpuscular Volume 92.4 fL (80.0-100.0); Mean Platelet Volume 7.4 fL (7.0-11.0); Mono # (Auto) 0.8 th/mm3 (0.0-0.9); Mono % (Auto) 7.4 % (0.0-8.0); Neut # (Auto) 8.6 th/mm3 (1.8-7.7); Neut % (Auto) 80.1 % (16.0-70.0); Platelet Count 307 th/mm3 (150-450); Red Blood Count 3.94 mil/mm3 (4.00-5.30); Red Cell Distribution Width 14.7 % (11.6-17.2); White Blood Count 10.7 th/mm3 (4.0-11.0)
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
[2018-01-29 12:13] LABS: Activated Partial Thrombo Time 23.4 sec (24.3-30.1); Prothrombin Time 10.2 sec (9.8-11.6)
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
[2018-01-29 12:27] LABS: Albumin 3.2 g/dL (3.4-5.0); Anion Gap 9 meq/L (5-15); Aspartate Aminotransferase 62 U/L (15-37); Blood Urea Nitrogen 6 mg/dL (7-18); Calcium 8.2 mg/dL (8.5-10.1); Chloride 102 meq/L (98-107); Glomerular Filtration Rate Greater Than 89 mL/min (>89); Glucose,Random 98 mg/dL (74-106); Potassium 5.6 meq/L (3.5-5.1); Sodium 138 meq/L (136-145)
[2018-01-29 12:34] LABS: Alanine Aminotransferase 29 U/L (10-53); Alkaline Phosphatase 154 U/L (45-117); Total Protein 7.5 g/dL (6.4-8.2)
[2018-01-29] MEDS ORDERED: Ampicillin/Sulbactam Inj 1,500 MG in Sodium Chloride 0.9% Inj 100 ML IV.SIG ONE (12:44)
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
[2018-01-29] MEDS ORDERED: Bisacodyl 10 MG Supp RECTAL PRN (13:07)
[2018-01-29] MEDS ORDERED: Ketorolac Inj 30 MG/ML (IVP) Vial IV.PUSH ONE (13:20)
[2018-01-29] MEDS: Morphine Sulfate Inj 2 MG/ML Vial IV.PUSH PRN ×3 (15:30→23:58)
[2018-01-29] MEDS: Sod Chloride 0.9% Inj 1,000 ML IV.CONT SCH (16:00)
[2018-01-29] MEDS ORDERED: LORazepam 1 MG Tablet PO PRN (16:56)
[2018-01-29] MEDS ORDERED: Haloperidol Inj 5 MG/ML Ampul IV.PUSH PRN (16:56)
[2018-01-29] MEDS ORDERED: Sodium Chloride 0.9% 2 ML Flush PRN IV.FLUSH (17:10)
[2018-01-29] MEDS: Multivitamin Inj 10 ML, Folic Acid Inj 1 MG in Sodium Chlor 0.9% Inj 500 ML IV.SIG SCH (18:03)
[2018-01-29 18:20] LABS: Anion Gap 8 meq/L (5-15); Blood Urea Nitrogen 6 mg/dL (7-18); Calcium 8.3 mg/dL (8.5-10.1); Carbon Dioxide 27.9 meq/L (21.0-32.0); Chloride 105 meq/L (98-107); Glomerular Filtration Rate Greater Than 89 mL/min (>89); Glucose,Random 90 mg/dL (74-106); Potassium 3.8 meq/L (3.5-5.1); Sodium 141 meq/L (136-145)
[2018-01-29 19:30] LABS: Amphetamine Screen,Urine Neg (Neg); Barbiturate Screen,Urine Neg (Neg); Cannabinoid Screen,Urine Neg (Neg); Cocaine Screen,Urine Pos (Neg)
[2018-01-29 19:45] LABS: Opiate Screen,Urine Pos (Neg)
[2018-01-29] MEDS: Sodium Chloride 0.9% 2 ML Flush BID IV.FLUSH SCH (20:05)
[2018-01-29] MEDS: Senna/Docusate Sodium 8.6/50 MG Tablet PO SCH (20:05)
[2018-01-29] MEDS: Thiamine Inj 100 MG in Sodium Chlor 0.9% Inj 100 ML IV.SIG SCH (22:34)
[2018-01-30] MEDS ORDERED: HYDROmorphone PF Inj 2 MG/ML Vial IV.PUSH ONE (01:31)
[2018-01-30] MEDS: Morphine Sulfate Inj 2 MG/ML Vial IV.PUSH PRN ×4 (04:39→19:10)
[2018-01-30] MEDS: Sod Chloride 0.9% Inj 1,000 ML IV.CONT SCH ×3 (06:12→17:46)
[2018-01-30 06:13] LABS: Baso # (Auto) 0.1 th/mm3 (0.0-0.2); Baso % (Auto) 1.2 % (0.0-2.0); Eos # (Auto) 0.1 th/mm3 (0.0-0.4); Eos % (Auto) 1.4 % (0.0-4.0); Hematocrit 33.1 % (35.0-46.0); Lymph # (Auto) 1.9 th/mm3 (1.0-4.8); Lymph % (Auto) 21.5 % (9.0-44.0); Mean Corpuscular HGB Conc 33.3 % (32.0-36.0); Mean Corpuscular Hemoglobin 30.5 pg (27.0-34.0); Mean Corpuscular Volume 91.5 fL (80.0-100.0); Mean Platelet Volume 7.5 fL (7.0-11.0); Mono # (Auto) 0.7 th/mm3 (0.0-0.9); Mono % (Auto) 7.8 % (0.0-8.0); Neut # (Auto) 5.9 th/mm3 (1.8-7.7); Neut % (Auto) 68.1 % (16.0-70.0); Platelet Count 282 th/mm3 (150-450); Red Blood Count 3.61 mil/mm3 (4.00-5.30); Red Cell Distribution Width 14.4 % (11.6-17.2); White Blood Count 8.6 th/mm3 (4.0-11.0)
[2018-01-30] MEDS ORDERED: Chlorhexidine Gluconate 2% 1 Pack (2 Cloths) TOPICAL ONE (06:21)
[2018-01-30 06:38] LABS: Alanine Aminotransferase 23 U/L (10-53); Albumin 2.9 g/dL (3.4-5.0); Anion Gap 7 meq/L (5-15); Aspartate Aminotransferase 29 U/L (15-37); Blood Urea Nitrogen 4 mg/dL (7-18); Carbon Dioxide 26.9 meq/L (21.0-32.0); Chloride 105 meq/L (98-107); Glomerular Filtration Rate Greater Than 89 mL/min (>89); Glucose,Random 90 mg/dL (74-106); Potassium 3.9 meq/L (3.5-5.1); Sodium 139 meq/L (136-145)
[2018-01-30 06:41] LABS: Alkaline Phosphatase 149 U/L (45-117); Total Protein 6.4 g/dL (6.4-8.2)
[2018-01-30 06:48] LABS: CKMB Percent 0.5 % (0.0-4.0); Creatine Kinase MB 1.2 ng/mL (0.5-3.6)
[2018-01-30 07:00] LABS: Hepatitits B Surface Antigen Nonreactive (Nonreactive)
[2018-01-30] MEDS ORDERED: Sodium Chlor 0.9% Inj 500 ML IV.SIG SCH (07:00)
[2018-01-30 07:23] LABS: Hepatitis A IgM Antibody Nonreactive (Nonreactive)
[2018-01-30] MEDS ORDERED: Ketorolac Inj 30 MG/ML (IVP) Vial IV.PUSH ONE (08:36)
[2018-01-30] MEDS ORDERED: MethylPREDNISolone Sod Succinate Inj 1,000 MG/16 ML Vial IV.SIG ONE (09:42)
[2018-01-30] MEDS ORDERED: Lidocaine 1%/Epinephrine 1:100,000 Inj 50 ML Vial ONE (09:46)
[2018-01-30] MEDS ORDERED: MethylPREDNISolone Sod Succinate Inj 125 MG/2 ML Vial ONE ×2 (09:46→15:06)
[2018-01-30] MEDS ORDERED: Lidocaine 2%/Epinephrine 1:100,000 30 ML MDV ONE (09:48)
[2018-01-30] MEDS ORDERED: ceFAZolin 1 GM Premix Inj 1 GM/50 ML FROZ.PIGGY IV.SIG ONE (10:22)
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
[2018-01-30] MEDS: Sodium Chloride 0.9% 2 ML Flush BID IV.FLUSH SCH ×2 (11:13→20:11)
[2018-01-30] MEDS: Senna/Docusate Sodium 8.6/50 MG Tablet PO SCH ×2 (11:13→20:11)
[2018-01-30] MEDS ORDERED: Succinylcholine Inj 100 MG/5 ML Syringe IV.PUSH ONE (12:12)
[2018-01-30] MEDS ORDERED: Phenylephrine/NS 1000 MCG/10ML Syringe IV.PUSH ONE (12:12)
[2018-01-30] MEDS ORDERED: Glycopyrrolate Inj 1 MG/5 ML Syringe IV.PUSH ONE (12:12)
[2018-01-30] MEDS ORDERED: Chlorhexidine Gluconate 0.12% Liq 15 ML UDC ONE ×2 (12:18→13:13)
[2018-01-30] MEDS ORDERED: Microfibrillar Collagen Hemostat 1 GM Packet TOPICAL ONE (13:19)
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
[2018-01-30] MEDS ORDERED: fentaNYL Citrate Inj 100 MCG/2 ML Ampul ONE ×2 (14:25→14:26)
[2018-01-30] MEDS ORDERED: diphenhydrAMINE HCl 50 MG/ML VIAL IV.PUSH ONE (14:34)
[2018-01-30] MEDS: Dextrose 5%/NaCl 0.45% Inj 1,000 ML IV.SIG SCH (15:20)
[2018-01-30] MEDS ORDERED: MethylPREDNISolone Sod Succinate Inj 125 MG/2 ML Vial IV.PUSH SCH (17:00)
[2018-01-30] MEDS: Acetaminophen-HYDROcodone 325/7.5 Liq 15 ML UDC PO PRN ×2 (17:41→22:32)
[2018-01-30] MEDS: Multivitamin Inj 10 ML, Folic Acid Inj 1 MG in Sodium Chlor 0.9% Inj 500 ML IV.SIG SCH (19:11)
[2018-01-31] MEDS: MethylPREDNISolone Sod Succinate Inj 125 MG/2 ML Vial IV.PUSH SCH ×2 (00:05→08:41)
[2018-01-31] MEDS: Thiamine Inj 100 MG in Sodium Chlor 0.9% Inj 100 ML IV.SIG SCH (00:58)
[2018-01-31] MEDS: Sod Chloride 0.9% Inj 1,000 ML IV.CONT SCH ×3 (00:59→17:36)
[2018-01-31] MEDS: Morphine Sulfate Inj 2 MG/ML Vial IV.PUSH PRN ×6 (02:35→22:24)
[2018-01-31] MEDS: Dextrose 5%/NaCl 0.45% Inj 1,000 ML IV.SIG SCH ×2 (05:44→17:57)
[2018-01-31] MEDS: Acetaminophen-HYDROcodone 325/7.5 Liq 15 ML UDC PO PRN ×4 (05:45→20:38)
[2018-01-31] MEDS: Senna/Docusate Sodium 8.6/50 MG Tablet PO SCH ×2 (08:40→20:45)
[2018-01-31] MEDS: Sodium Chloride 0.9% 2 ML Flush BID IV.FLUSH SCH ×2 (08:40→20:45)
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
[2018-01-31] MEDS: Multivitamin Inj 10 ML, Folic Acid Inj 1 MG in Sodium Chlor 0.9% Inj 500 ML IV.SIG SCH (17:57)
[2018-02-01] MEDS: Acetaminophen-HYDROcodone 325/7.5 Liq 15 ML UDC PO PRN ×4 (00:18→14:12)
[2018-02-01] MEDS: Thiamine Inj 100 MG in Sodium Chlor 0.9% Inj 100 ML IV.SIG SCH (00:19)
[2018-02-01] MEDS: Sod Chloride 0.9% Inj 1,000 ML IV.CONT SCH ×2 (01:50→10:22)
[2018-02-01] MEDS: Morphine Sulfate Inj 2 MG/ML Vial IV.PUSH PRN ×2 (02:43→07:26)
[2018-02-01 09:59] VITALS: PULSE 74; RESP 16
[2018-02-01] MEDS: Dextrose 5%/NaCl 0.45% Inj 1,000 ML IV.SIG SCH (10:05)
[2018-02-01] MEDS: Senna/Docusate Sodium 8.6/50 MG Tablet PO SCH (10:05)
[2018-02-01] MEDS: Sodium Chloride 0.9% 2 ML Flush BID IV.FLUSH SCH (10:21)
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
[2018-02-01 13:43] VITALS: BP 127/87; TEMP 97.5; O2SAT 97
== END 2018-02-01 15:00 | disposition home or self-care (01) ==
LOC: NEPD 11:09 → NEDA 11:09 → N06 13:52 → UNDODISOB 01-31 14:30
PROVIDERS: ADMIT Family Medicine; ATTEND Family Medicine

== ENCOUNTER 2018-06-11 15:35 | Inpatient (IN) ==
[2018-06-11] MEDS ORDERED: Aluminum/Magnesium/Simethacone Susp 30 ML UDC PO PRN (17:33)
[2018-06-11] MEDS ORDERED: Acetaminophen 325 MG Tablet PO PRN (17:33)
[2018-06-11] MEDS ORDERED: LORazepam 1 MG Tablet PO PRN (17:51)
[2018-06-12 10:30] LABS: Anion Gap 8 meq/L (5-15); Blood Urea Nitrogen 10 mg/dL (7-18); Carbon Dioxide 26.9 meq/L (21.0-32.0); Chloride 103 meq/L (98-107); Cholesterol 174 mg/dL (120-200); Glomerular Filtration Rate Greater Than 89 mL/min (>89); Glucose,Random 79 mg/dL (74-106); Potassium 3.5 meq/L (3.5-5.1); Sodium 138 meq/L (136-145); Triglycerides 192 mg/dL (42-150)
[2018-06-12 10:33] LABS: HDL Cholesterol 101.9 mg/dL (40.0-60.0); LDL Cholesterol,Calculated 34 mg/dL (0-99)
[2018-06-12] MEDS: Sertraline 50 MG Tablet PO SCH (12:43)
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
[2018-06-12] MEDS: LORazepam 1 MG Tablet PO SCH ×2 (14:54→21:27)
[2018-06-12] MEDS: QUEtiapine 100 MG Tablet PO SCH (20:55)
[2018-06-12] MEDS: Prazosin HCl 1 MG Capsule PO SCH (20:56)
[2018-06-12 22:00] LABS: Hemoglobin A1c 4.9 % (4.3-6.0)
[2018-06-13] MEDS: LORazepam 1 MG Tablet PO SCH ×4 (06:06→21:13)
[2018-06-13] MEDS: Sertraline 50 MG Tablet PO SCH (09:14)
--- NOTE | 2018-06-13 13:33 | P.PNPSY ---
Subjective Chief Complaint: "My depression and anxiety have worsened and I need to get back on medications " Remarks: Patient seen for follow-up, chart reviewed, patient discussed with nursing staff ; we reviewed the patient's mood, thoughts, and behaviors from overnight and this morning. Nurse reports the patient slept approximately 7 hours overnight and has been compliant with care. Evening shift described her as tremulous at times but was social and her behavior is appropriate within the milieu. Patient was seen this morning sitting in the day room watching TV and keeping to herself. Patient reports "I am feeling more depressed because stress is starting to hit me... But I do not want to kill myself." Patient reports that she slept last night better than she had in months. She denies any side effects of medications and she does not believe she is having any withdrawal symptoms from alcohol. She continues to express motivation for outpatient treatment and is not motivated for residential treatment of her substance use. Patient would like assistance in finding half-way after discharge. Mental Status Examination Appearance: Disheveled Consciousness: Alert Orientation: x4 Motor Activity: Normal gait Speech: Unremarkable Language: Adequate Fund of Knowledge: Adequate Attention and Concentration: Adequate Memory: Unremarkable Mood: Sad, Anxious Affect: Sad, Anxious Thought Process & Associations: Intact Thought Content: Appropriate Hallucination Type: None Delusion Type: None Suicidal Ideation: No Suicidal Plan: No Suicidal Intention: No Homicidal Ideation: No Insight: Fair Judgment: Impulsive Assessment and Plan - Assessment (1) Mood disorder Code(s): F39 - Unspecified mood [affective] disorder Status: Acute (2) PTSD (post-traumatic stress disorder) Code(s): F43.10 - Post-traumatic stress disorder, unspecified Status: Chronic (3) Dissociative identity disorder Code(s): F44.81 - Dissociative identity disorder Status: Suspected (4) Cocaine abuse Code(s): F14.10 - Cocaine abuse, uncomplicated Status: Acute (5) Alcohol dependence Code(s): F10.20 - Alcohol dependence, uncomplicated Status: Acute - Plan Plan: June 12, 2018: Initial treatment plan 1. Continue with admission to inpatient psychiatry at [facility]; convert to voluntary/competent legal status. 2. Routine unit precautions. 3. Comfort medications ordered for as needed treatment of constipation, heartburn, diarrhea, and mild pain. 4. Hydroxyzine 50mg po q6H prn anxiety/insomnia. 5. Continue alcohol withdrawal protocol using Ativan 1-2 mg as needed for elevations in CIWA scores. 6. Start Ativan taper with 1 mg every 8 hours for 1 day followed by Ativan 1 mg every 12 hours for 1 day followed by Ativan 1 mg/day x 1 day. 7. Start Zoloft 50 mg/day for treatment of anxiety and depression. 8. Start prazosin 1 mg at bedtime for treatment of nightmares. 9. Start Seroquel 100 mg at bedtime for treatment of mood and anxiety disorder. 10. Patient will participate in the unit programming to include group therapies , milieu therapy and recreational therapies. 11. Discharge planning: Patient will need referrals for outpatient psychiatric care. She is currently motivated only for outpatient substance abuse treatment. Estimated LOS: 7 days June 13, 2018: Good response to initial treatment plan as the patient's alcohol withdrawal symptoms are well controlled and her suicidal ideations are currently in remission. She is tolerated the start of current medications and agrees with plan to continue. Continue inpatient psychiatric treatment and observation, voluntary status. Continue current medications unchanged. Discharge planning: Patient will need referrals for outpatient psychiatric care. She is currently motivated only for outpatient substance abuse treatment. Justification for Continued Inpatient Stay: Patient remains an elevated risk for self-harm by acting out on recent suicidal ideations and will require further inpatient stabilization and preparation of a safe discharge plan. Moving patient to a less restrictive environment at this time may result in decompensation.
[2018-06-13] MEDS: Prazosin HCl 1 MG Capsule PO SCH (21:12)
[2018-06-13] MEDS: QUEtiapine 100 MG Tablet PO SCH (21:13)
--- NOTE | 2018-06-13 21:22 | ECG ---
Date Performed: 06/12/2018 Time Performed: 13:09:16 PTAGE: 37 years EKG: Sinus rhythm NORMAL ECG PREVIOUS TRACING : 09/27/2017 16.01 Since the previous tracing, no significant change noted DOCTOR: Vikram Szymanski Interpretating Date/Time 06/13/2018 21:21:57
[2018-06-14] MEDS ORDERED: LORazepam 1 MG Tablet PO ONE (08:00)
[2018-06-14] MEDS: LORazepam 1 MG Tablet PO SCH ×2 (10:06→20:53)
[2018-06-14] MEDS: Sertraline 50 MG Tablet PO SCH (10:06)
--- NOTE | 2018-06-14 14:03 | P.PNPSY ---
Subjective Chief Complaint: "My depression and anxiety have worsened and I need to get back on medications " Remarks: Patient seen for follow-up, chart reviewed, patient discussed with nursing staff ; we reviewed the patient's mood, thoughts, and behaviors from overnight and this morning. Nurse reports the patient slept 7 hours overnight and was described as seclusive and anxious but denies suicidal ideations. Patient complains of mouth pain from wisdom teeth problems and has a dental appointment reportedly next week. Patient was seen at bedside after breakfast where she was sitting and reading a book. She continues to report good sleep from the current medication regimen. She denies any diarrhea and would like to continue with the titration of Zoloft for treatment of her anxiety. Mental Status Examination Appearance: Disheveled Consciousness: Alert Orientation: x4 Motor Activity: Normal gait Speech: Unremarkable Language: Adequate Fund of Knowledge: Adequate Attention and Concentration: Adequate Memory: Unremarkable Mood: Sad, Anxious Affect: Sad, Anxious Thought Process & Associations: Intact Thought Content: Appropriate Hallucination Type: None Delusion Type: None Suicidal Ideation: No Suicidal Plan: No Suicidal Intention: No Homicidal Ideation: No Insight: Fair Judgment: Impulsive Assessment and Plan - Assessment (1) Mood disorder Code(s): F39 - Unspecified mood [affective] disorder Status: Acute (2) PTSD (post-traumatic stress disorder) Code(s): F43.10 - Post-traumatic stress disorder, unspecified Status: Chronic (3) Dissociative identity disorder Code(s): F44.81 - Dissociative identity disorder Status: Suspected (4) Cocaine abuse Code(s): F14.10 - Cocaine abuse, uncomplicated Status: Acute (5) Alcohol dependence Code(s): F10.20 - Alcohol dependence, uncomplicated Status: Acute - Plan Plan: June 12, 2018: Initial treatment plan 1. Continue with admission to inpatient psychiatry at [facility]; convert to voluntary/competent legal status. 2. Routine unit precautions. 3. Comfort medications ordered for as needed treatment of constipation, heartburn, diarrhea, and mild pain. 4. Hydroxyzine 50mg po q6H prn anxiety/insomnia. 5. Continue alcohol withdrawal protocol using Ativan 1-2 mg as needed for elevations in CIWA scores. 6. Start Ativan taper with 1 mg every 8 hours for 1 day followed by Ativan 1 mg every 12 hours for 1 day followed by Ativan 1 mg/day x 1 day. 7. Start Zoloft 50 mg/day for treatment of anxiety and depression. 8. Start prazosin 1 mg at bedtime for treatment of nightmares. 9. Start Seroquel 100 mg at bedtime for treatment of mood and anxiety disorder. 10. Patient will participate in the unit programming to include group therapies , milieu therapy and recreational therapies. 11. Discharge planning: Patient will need referrals for outpatient psychiatric care. She is currently motivated only for outpatient substance abuse treatment. Estimated LOS: 7 days June 13, 2018: Good response to initial treatment plan as the patient's alcohol withdrawal symptoms are well controlled and her suicidal ideations are currently in remission. She is tolerated the start of current medications and agrees with plan to continue. Continue inpatient psychiatric treatment and observation, voluntary status. Continue current medications unchanged. Discharge planning: Patient will need referrals for outpatient psychiatric care. She is currently motivated only for outpatient substance abuse treatment. June 14, 2018: Good response to treatment continues as her sleep is well controlled and she is not complaining of any withdrawal symptoms. She continues to have chronic and acute anxiety symptoms that would benefit from continued treatment and titration of her medications. Continue inpatient psychiatric treatment and observation, voluntary status. Continue current medications with an increase of Zoloft to 100 mg/day. Discharge planning: Patient will need referrals for outpatient psychiatric care. She is currently motivated only for outpatient substance abuse treatment Justification for Continued Inpatient Stay: Patient remains an elevated risk for self-harm by self neglect and relapse of drug and alcohol use and a return of self-injurious behaviors that will require further inpatient stabilization and preparation of a safe discharge plan. Moving patient to a less restrictive environment at this time may result in decompensation.
[2018-06-14] MEDS: Sertraline 100 MG Tablet PO SCH (15:25)
[2018-06-14] MEDS: QUEtiapine 100 MG Tablet PO SCH (20:54)
[2018-06-14] MEDS: Prazosin HCl 1 MG Capsule PO SCH (20:54)
[2018-06-15] MEDS: Sertraline 100 MG Tablet PO SCH (09:20)
[2018-06-15] MEDS: LORazepam 1 MG Tablet PO SCH (09:20)
--- NOTE | 2018-06-15 11:30 | P.PNPSY ---
Subjective Chief Complaint: "My depression and anxiety have worsened and I need to get back on medications " Remarks: Patient seen for follow-up, chart reviewed, patient discussed with nursing staff ; we reviewed the patient's mood, thoughts, and behaviors from overnight and this morning. Nurse reports that patient slept 6 hours overnight and she is described as calm cooperative and denying suicidal ideations. Patient was seen at bedside where she was sitting after breakfast and reading a book. She reports satisfaction with her sleep. She reports tolerability of the recent increase in Zoloft. She rates her depression at 6 out of 10 and anxiety at 6 out of 10 but continues to lack confidence in her ability to maintain her sobriety if discharged "too soon". Mental Status Examination Appearance: Disheveled Consciousness: Alert Orientation: x4 Motor Activity: Normal gait Speech: Unremarkable Language: Adequate Fund of Knowledge: Adequate Attention and Concentration: Adequate Memory: Unremarkable Mood: Sad, Anxious Affect: Sad, Anxious Thought Process & Associations: Intact Thought Content: Appropriate Hallucination Type: None Delusion Type: None Suicidal Ideation: No Suicidal Plan: No Suicidal Intention: No Homicidal Ideation: No Insight: Fair Judgment: Impulsive Assessment and Plan - Assessment (1) Mood disorder Code(s): F39 - Unspecified mood [affective] disorder Status: Acute (2) PTSD (post-traumatic stress disorder) Code(s): F43.10 - Post-traumatic stress disorder, unspecified Status: Chronic (3) Dissociative identity disorder Code(s): F44.81 - Dissociative identity disorder Status: Suspected (4) Cocaine abuse Code(s): F14.10 - Cocaine abuse, uncomplicated Status: Acute (5) Alcohol dependence Code(s): F10.20 - Alcohol dependence, uncomplicated Status: Acute - Plan Plan: June 12, 2018: Initial treatment plan 1. Continue with admission to inpatient psychiatry at [facility]; convert to voluntary/competent legal status. 2. Routine unit precautions. 3. Comfort medications ordered for as needed treatment of constipation, heartburn, diarrhea, and mild pain. 4. Hydroxyzine 50mg po q6H prn anxiety/insomnia. 5. Continue alcohol withdrawal protocol using Ativan 1-2 mg as needed for elevations in CIWA scores. 6. Start Ativan taper with 1 mg every 8 hours for 1 day followed by Ativan 1 mg every 12 hours for 1 day followed by Ativan 1 mg/day x 1 day. 7. Start Zoloft 50 mg/day for treatment of anxiety and depression. 8. Start prazosin 1 mg at bedtime for treatment of nightmares. 9. Start Seroquel 100 mg at bedtime for treatment of mood and anxiety disorder. 10. Patient will participate in the unit programming to include group therapies , milieu therapy and recreational therapies. 11. Discharge planning: Patient will need referrals for outpatient psychiatric care. She is currently motivated only for outpatient substance abuse treatment. Estimated LOS: 7 days June 13, 2018: Good response to initial treatment plan as the patient's alcohol withdrawal symptoms are well controlled and her suicidal ideations are currently in remission. She is tolerated the start of current medications and agrees with plan to continue. Continue inpatient psychiatric treatment and observation, voluntary status. Continue current medications unchanged. Discharge planning: Patient will need referrals for outpatient psychiatric care. She is currently motivated only for outpatient substance abuse treatment. June 14, 2018: Good response to treatment continues as her sleep is well controlled and she is not complaining of any withdrawal symptoms. She continues to have chronic and acute anxiety symptoms that would benefit from continued treatment and titration of her medications. Continue inpatient psychiatric treatment and observation, voluntary status. Continue current medications with an increase of Zoloft to 100 mg/day. Discharge planning: Patient will need referrals for outpatient psychiatric care. She is currently motivated only for outpatient substance abuse treatment June 15, 2018: Continued good response to treatment as the patient's sleep is well controlled and no signs of alcohol withdrawal. Her mood and anxiety have been improving and she is tolerating her medications. She remains a high risk for relapse therefore we will continue to pursue safe discharge plans anticipate discharge this week Continue current medications unchanged. Justification for Continued Inpatient Stay: Patient remains an elevated risk for self-harm by relapse and acting out on suicidal ideations and will require further inpatient stabilization and preparation of a safe discharge plan. Moving patient to a less restrictive environment at this time may result in decompensation.
[2018-06-15] MEDS: QUEtiapine 100 MG Tablet PO SCH (21:42)
[2018-06-15] MEDS: Prazosin HCl 1 MG Capsule PO SCH (21:43)
[2018-06-16] MEDS: LORazepam 1 MG Tablet PO SCH (08:46)
[2018-06-16] MEDS: Sertraline 100 MG Tablet PO SCH (08:46)
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
--- NOTE | 2018-06-16 12:00 | P.PNPSY ---
Subjective Chief Complaint: "My depression and anxiety have worsened and I need to get back on medications " Remarks: Patient seen for follow-up, chart reviewed, patient discussed with nursing staff ; we reviewed the patient's mood, thoughts, and behaviors from overnight and this morning. Nurse reports the patient seem more restless overnight but got 6 hours of sleep. The patient denied any nightmares but does report continued anxiety as he rates at 6 out of 10. She rates her depression at 5 out of 10. She denies any suicidal ideations. Patient expressed motivation to stay in the hospital until the weekend out of concern that she remains a high risk for relapse and becoming overwhelmed with anxiety if she discharges too soon. Mental Status Examination Appearance: Disheveled Consciousness: Alert Orientation: x4 Motor Activity: Normal gait Speech: Unremarkable Language: Adequate Fund of Knowledge: Adequate Attention and Concentration: Adequate Memory: Unremarkable Mood: Sad, Anxious Affect: Sad, Anxious Thought Process & Associations: Intact Thought Content: Appropriate Hallucination Type: None Delusion Type: None Suicidal Ideation: No Suicidal Plan: No Suicidal Intention: No Homicidal Ideation: No Insight: Fair Judgment: Impulsive Assessment and Plan - Assessment (1) Mood disorder Code(s): F39 - Unspecified mood [affective] disorder Status: Acute (2) PTSD (post-traumatic stress disorder) Code(s): F43.10 - Post-traumatic stress disorder, unspecified Status: Chronic (3) Dissociative identity disorder Code(s): F44.81 - Dissociative identity disorder Status: Suspected (4) Cocaine abuse Code(s): F14.10 - Cocaine abuse, uncomplicated Status: Acute (5) Alcohol dependence Code(s): F10.20 - Alcohol dependence, uncomplicated Status: Acute - Plan Plan: June 12, 2018: Initial treatment plan 1. Continue with admission to inpatient psychiatry at [facility] [address]; convert to voluntary/competent legal status. 2. Routine unit precautions. 3. Comfort medications ordered for as needed treatment of constipation, heartburn, diarrhea, and mild pain. 4. Hydroxyzine 50mg po q6H prn anxiety/insomnia. 5. Continue alcohol withdrawal protocol using Ativan 1-2 mg as needed for elevations in CIWA scores. 6. Start Ativan taper with 1 mg every 8 hours for 1 day followed by Ativan 1 mg every 12 hours for 1 day followed by Ativan 1 mg/day x 1 day. 7. Start Zoloft 50 mg/day for treatment of anxiety and depression. 8. Start prazosin 1 mg at bedtime for treatment of nightmares. 9. Start Seroquel 100 mg at bedtime for treatment of mood and anxiety disorder. 10. Patient will participate in the unit programming to include group therapies , milieu therapy and recreational therapies. 11. Discharge planning: Patient will need referrals for outpatient psychiatric care. She is currently motivated only for outpatient substance abuse treatment. Estimated LOS: 7 days June 13, 2018: Good response to initial treatment plan as the patient's alcohol withdrawal symptoms are well controlled and her suicidal ideations are currently in remission. She is tolerated the start of current medications and agrees with plan to continue. Continue inpatient psychiatric treatment and observation, voluntary status. Continue current medications unchanged. Discharge planning: Patient will need referrals for outpatient psychiatric care. She is currently motivated only for outpatient substance abuse treatment. June 14, 2018: Good response to treatment continues as her sleep is well controlled and she is not complaining of any withdrawal symptoms. She continues to have chronic and acute anxiety symptoms that would benefit from continued treatment and titration of her medications. Continue inpatient psychiatric treatment and observation, voluntary status. Continue current medications with an increase of Zoloft to 100 mg/day. Discharge planning: Patient will need referrals for outpatient psychiatric care. She is currently motivated only for outpatient substance abuse treatment June 15, 2018: Continued good response to treatment as the patient's sleep is well controlled and no signs of alcohol withdrawal. Her mood and anxiety have been improving and she is tolerating her medications. She remains a high risk for relapse therefore we will continue to pursue safe discharge plans anticipate discharge this week Continue current medications unchanged. June 16, 2018: Good response to treatment, the patient's withdrawal symptoms are well controlled and she is about to complete her Ativan taper today. She continues to complain of moderate levels of anxiety and she lacks confident in her ability to maintain her recovery if discharged tomorrow therefore we will continue to provide supportive care in make further adjustments to her medications and consider discharge later this week. Continue inpatient psychiatric treatment, voluntary status. Continue current medications with an increase of Seroquel to 150 mg at bedtime. Discontinue alcohol withdrawal protocol today. Discharge planning: Patient will need referrals for outpatient psychiatric care. She is currently motivated only for outpatient substance abuse treatment Justification for Continued Inpatient Stay: Patient remains an elevated risk for self-harm by relapse on drug and alcohol use and return of suicidal behaviors and will require further inpatient stabilization and preparation of a safe discharge plan. Moving patient to a less restrictive environment at this time may result in decompensation.
[2018-06-16] MEDS ORDERED: QUEtiapine 100 MG Tablet PO SCH (13:00)
[2018-06-16] MEDS: Prazosin HCl 1 MG Capsule PO SCH (20:16)
[2018-06-16] MEDS: QUEtiapine 100 MG Tablet PO SCH (20:16)
[2018-06-17] MEDS: Sertraline 100 MG Tablet PO SCH (08:33)
[2018-06-17] MEDS ORDERED: LORazepam 1 MG Tablet PO ONE (13:40)
--- NOTE | 2018-06-17 14:44 | P.PNPSY ---
Subjective Chief Complaint: "My depression and anxiety have worsened and I need to get back on medications " Remarks: Patient seen for follow-up, chart reviewed, patient discussed with nursing staff ; we reviewed the patient's mood, thoughts, and behaviors from overnight and this morning. Nurse reports that the patient slept 8 hours overnight. She is described as more social and attending more groups. She denies any hallucinations or suicidal ideations. She did have one episode of acute anxiety on the evening shift. She was seen sitting in the day room conversing with patients after lunch. She complains of a nightmare last night despite her prazosin dose. She also complains of acute anxiety this afternoon after discussing discharge plans. She rates her anxiety as 8 out of 10 and complains of lack of efficacy from Atarax 50 mg as needed. We discussed risk benefits side effects and alternative treatments and she expressed understanding that Ativan is not indicated for long-term treatment of anxiety but she would like Ativan 1 mg now due to the severity of anxiety with further increase of the Atarax from now on. A brief review of systems was done and the patient denies any nausea, diarrhea, constipation, abdominal pain, headaches, dizziness, tremors, muscle spasms, chest pain, or heart palpitations. Mental Status Examination Appearance: Disheveled Consciousness: Alert Orientation: x4 Motor Activity: Normal gait Speech: Unremarkable Language: Adequate Fund of Knowledge: Adequate Attention and Concentration: Adequate Memory: Unremarkable Mood: Anxious Affect: Anxious Thought Process & Associations: Intact Thought Content: Appropriate Hallucination Type: None Delusion Type: None Suicidal Ideation: No Suicidal Plan: No Suicidal Intention: No Homicidal Ideation: No Insight: Fair Judgment: Impulsive Assessment and Plan - Assessment (1) Mood disorder Code(s): F39 - Unspecified mood [affective] disorder Status: Acute (2) PTSD (post-traumatic stress disorder) Code(s): F43.10 - Post-traumatic stress disorder, unspecified Status: Chronic (3) Cocaine abuse Code(s): F14.10 - Cocaine abuse, uncomplicated Status: Acute (4) Alcohol dependence Code(s): F10.20 - Alcohol dependence, uncomplicated Status: Acute - Plan Plan: June 12, 2018: Initial treatment plan 1. Continue with admission to inpatient psychiatry at [facility]; convert to voluntary/competent legal status. 2. Routine unit precautions. 3. Comfort medications ordered for as needed treatment of constipation, heartburn, diarrhea, and mild pain. 4. Hydroxyzine 50mg po q6H prn anxiety/insomnia. 5. Continue alcohol withdrawal protocol using Ativan 1-2 mg as needed for elevations in CIWA scores. 6. Start Ativan taper with 1 mg every 8 hours for 1 day followed by Ativan 1 mg every 12 hours for 1 day followed by Ativan 1 mg/day x 1 day. 7. Start Zoloft 50 mg/day for treatment of anxiety and depression. 8. Start prazosin 1 mg at bedtime for treatment of nightmares. 9. Start Seroquel 100 mg at bedtime for treatment of mood and anxiety disorder. 10. Patient will participate in the unit programming to include group therapies , milieu therapy and recreational therapies. 11. Discharge planning: Patient will need referrals for outpatient psychiatric care. She is currently motivated only for outpatient substance abuse treatment. Estimated LOS: 7 days June 13, 2018: Good response to initial treatment plan as the patient's alcohol withdrawal symptoms are well controlled and her suicidal ideations are currently in remission. She is tolerated the start of current medications and agrees with plan to continue. Continue inpatient psychiatric treatment and observation, voluntary status. Continue current medications unchanged. Discharge planning: Patient will need referrals for outpatient psychiatric care. She is currently motivated only for outpatient substance abuse treatment. June 14, 2018: Good response to treatment continues as her sleep is well controlled and she is not complaining of any withdrawal symptoms. She continues to have chronic and acute anxiety symptoms that would benefit from continued treatment and titration of her medications. Continue inpatient psychiatric treatment and observation, voluntary status. Continue current medications with an increase of Zoloft to 100 mg/day. Discharge planning: Patient will need referrals for outpatient psychiatric care. She is currently motivated only for outpatient substance abuse treatment June 15, 2018: Continued good response to treatment as the patient's sleep is well controlled and no signs of alcohol withdrawal. Her mood and anxiety have been improving and she is tolerating her medications. She remains a high risk for relapse therefore we will continue to pursue safe discharge plans anticipate discharge this week Continue current medications unchanged. June 16, 2018: Good response to treatment, the patient's withdrawal symptoms are well controlled and she is about to complete her Ativan taper today. She continues to complain of moderate levels of anxiety and she lacks confident in her ability to maintain her recovery if discharged tomorrow therefore we will continue to provide supportive care in make further adjustments to her medications and consider discharge later this week. Continue inpatient psychiatric treatment, voluntary status. Continue current medications with an increase of Seroquel to 150 mg at bedtime. Discontinue alcohol withdrawal protocol today. Discharge planning: Patient will need referrals for outpatient psychiatric care. She is currently motivated only for outpatient substance abuse treatment June 17, 2018: A consultation report and/or test report was reviewed and the following insight and changes gained--none ordered Laboratory results were reviewed and the following results were pertinent--none ordered A repeat screening ECG was done and the patient's QTc was--none ordered Good response to treatment, the patient's withdrawal symptoms remain in remission and she is denying suicidal ideations but continues to complain of severe anxiety and lacks confidence with her ability to maintain emotional stability and safety if discharged too soon. The patient has made an effort to attend more of the inpatient programming and she is reporting a positive response. Patient is working with unit social workers to develop safe discharge plan. -Continue patient psychiatric and observation, voluntary status. -Continue current medications with an increase of the hydroxyzine to 100 mg every 6 hours as needed for anxiety and an increase of the prazosin to 2 mg at bedtime for nightmares. Discharge planning: The patient will be staying with a friend after discharge but will need referrals to [facility] for continued psychiatric treatment. Anticipate discharge Friday. Justification for Continued Inpatient Stay: Patient remains an elevated risk for self-harm by self neglect and will require further inpatient stabilization and preparation of a safe discharge plan. Moving patient to a less restrictive environment at this time may result in decompensation. The patient's risk of complications is moderate due to the patient having multiple chronic illnesses with mild to moderate exacerbations and continued symptoms of anxiety and the need for prescription drug management.
[2018-06-17] MEDS: QUEtiapine 100 MG Tablet PO SCH (20:40)
[2018-06-18] MEDS: Sertraline 100 MG Tablet PO SCH (09:21)
--- NOTE | 2018-06-18 12:49 | P.PNPSY ---
Subjective Chief Complaint: "My depression and anxiety have worsened and I need to get back on medications " Remarks: Patient seen for follow-up, chart reviewed, patient discussed with nursing staff ; we reviewed the patient's mood, thoughts, and behaviors from overnight and this morning. Nursing reports that the patient slept 8 hours overnight. She is described as calm cooperative and attending groups. She denied any suicidal or homicidal ideations or hallucinations with nursing staff. The nursing staff to describe her as med seeking when it comes to anxiolytics. Patient was seen this morning sitting in the day room conversing with other patients. She had no complaints. The patient reports that she is working on her discharge plans to include setting up follow-up with [facility] and ensuring that she has a home to go to on Friday. She is tolerating her current medications without complaints. A brief review of systems was done and the patient denies any nausea, diarrhea, constipation, abdominal pain, headaches, dizziness, tremors, muscle spasms, chest pain, or heart palpitations. Mental Status Examination Appearance: Disheveled Consciousness: Alert Orientation: x4 Motor Activity: Normal gait Speech: Unremarkable Language: Adequate Fund of Knowledge: Adequate Attention and Concentration: Adequate Memory: Unremarkable Mood: Anxious Affect: Anxious Thought Process & Associations: Intact Thought Content: Appropriate Hallucination Type: None Delusion Type: None Suicidal Ideation: No Suicidal Plan: No Suicidal Intention: No Homicidal Ideation: No Insight: Fair Judgment: Impulsive Assessment and Plan - Assessment (1) Mood disorder Code(s): F39 - Unspecified mood [affective] disorder Status: Acute (2) PTSD (post-traumatic stress disorder) Code(s): F43.10 - Post-traumatic stress disorder, unspecified Status: Chronic (3) Cocaine abuse Code(s): F14.10 - Cocaine abuse, uncomplicated Status: Acute (4) Alcohol dependence Code(s): F10.20 - Alcohol dependence, uncomplicated Status: Chronic - Plan Plan: June 12, 2018: Initial treatment plan 1. Continue with admission to inpatient psychiatry at [facility]; convert to voluntary/competent legal status. 2. Routine unit precautions. 3. Comfort medications ordered for as needed treatment of constipation, heartburn, diarrhea, and mild pain. 4. Hydroxyzine 50mg po q6H prn anxiety/insomnia. 5. Continue alcohol withdrawal protocol using Ativan 1-2 mg as needed for elevations in CIWA scores. 6. Start Ativan taper with 1 mg every 8 hours for 1 day followed by Ativan 1 mg every 12 hours for 1 day followed by Ativan 1 mg/day x 1 day. 7. Start Zoloft 50 mg/day for treatment of anxiety and depression. 8. Start prazosin 1 mg at bedtime for treatment of nightmares. 9. Start Seroquel 100 mg at bedtime for treatment of mood and anxiety disorder. 10. Patient will participate in the unit programming to include group therapies , milieu therapy and recreational therapies. 11. Discharge planning: Patient will need referrals for outpatient psychiatric care. She is currently motivated only for outpatient substance abuse treatment. Estimated LOS: 7 days June 13, 2018: Good response to initial treatment plan as the patient's alcohol withdrawal symptoms are well controlled and her suicidal ideations are currently in remission. She is tolerated the start of current medications and agrees with plan to continue. Continue inpatient psychiatric treatment and observation, voluntary status. Continue current medications unchanged. Discharge planning: Patient will need referrals for outpatient psychiatric care. She is currently motivated only for outpatient substance abuse treatment. June 14, 2018: Good response to treatment continues as her sleep is well controlled and she is not complaining of any withdrawal symptoms. She continues to have chronic and acute anxiety symptoms that would benefit from continued treatment and titration of her medications. Continue inpatient psychiatric treatment and observation, voluntary status. Continue current medications with an increase of Zoloft to 100 mg/day. Discharge planning: Patient will need referrals for outpatient psychiatric care. She is currently motivated only for outpatient substance abuse treatment June 15, 2018: Continued good response to treatment as the patient's sleep is well controlled and no signs of alcohol withdrawal. Her mood and anxiety have been improving and she is tolerating her medications. She remains a high risk for relapse therefore we will continue to pursue safe discharge plans anticipate discharge this week Continue current medications unchanged. June 16, 2018: Good response to treatment, the patient's withdrawal symptoms are well controlled and she is about to complete her Ativan taper today. She continues to complain of moderate levels of anxiety and she lacks confident in her ability to maintain her recovery if discharged tomorrow therefore we will continue to provide supportive care in make further adjustments to her medications and consider discharge later this week. Continue inpatient psychiatric treatment, voluntary status. Continue current medications with an increase of Seroquel to 150 mg at bedtime. Discontinue alcohol withdrawal protocol today. Discharge planning: Patient will need referrals for outpatient psychiatric care. She is currently motivated only for outpatient substance abuse treatment June 17, 2018: Good response to treatment, the patient's withdrawal symptoms remain in remission and she is denying suicidal ideations but continues to complain of severe anxiety and lacks confidence with her ability to maintain emotional stability and safety if discharged too soon. The patient has made an effort to attend more of the inpatient programming and she is reporting a positive response. Patient is working with unit social workers to develop safe discharge plan. -Continue patient psychiatric and observation, voluntary status. -Continue current medications with an increase of the hydroxyzine to 100 mg every 6 hours as needed for anxiety and an increase of the prazosin to 2 mg at bedtime for nightmares. Discharge planning: The patient will be staying with a friend after discharge but will need referrals to [facility] for continued psychiatric treatment. Anticipate discharge Friday. June 18, 2018: Good response to treatment; patient has completed her alcohol detox and she is tolerating her current psychotropic medication regimen. She continues to complain of anxiety and is at risk of decompensation and a return of substance abuse and suicidal behaviors if discharged without further mitigating risks of relapse by ensuring stable follow-up and housing. -Continue patient psychiatric and observation, voluntary status. -Continue current medications unchanged as the patient is reporting good response to treatment. Discharge planning: The patient will be staying with a friend after discharge but will need referrals to [facility] for continued psychiatric treatment. Anticipate discharge Friday. Justification for Continued Inpatient Stay: Patient remains an elevated risk for self-harm by self neglect and will require further inpatient stabilization and preparation of a safe discharge plan. Moving patient to a less restrictive environment at this time may result in decompensation. The patient's risk of complications is moderate due to the patient having multiple chronic illnesses with mild to moderate exacerbations and continued symptoms of anxiety and the need for prescription drug management.
[2018-06-18] MEDS: QUEtiapine 100 MG Tablet PO SCH (21:16)
[2018-06-19] MEDS: Sertraline 100 MG Tablet PO SCH (09:01)
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
[2018-06-19] MEDS: Acetaminophen 325 MG Tablet PO PRN (13:35)
[2018-06-19] MEDS: QUEtiapine 100 MG Tablet PO SCH (21:07)
[2018-06-19] MEDS: Naproxen 500 MG Tablet PO SCH ×2 (21:08→21:38)
[2018-06-20] MEDS: Naproxen 500 MG Tablet PO SCH ×2 (09:37→20:08)
[2018-06-20] MEDS: Sertraline 100 MG Tablet PO SCH (09:37)
[2018-06-20] MEDS: Acetaminophen 325 MG Tablet PO PRN ×2 (12:08→20:08)
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
[2018-06-20] MEDS: QUEtiapine 100 MG Tablet PO SCH (20:08)
[2018-06-21] MEDS: Sertraline 100 MG Tablet PO SCH (08:14)
[2018-06-21] MEDS: Naproxen 500 MG Tablet PO SCH ×2 (08:14→20:26)
--- NOTE | 2018-06-21 09:45 | P.PNPSY ---
Subjective Chief Complaint: "My depression and anxiety have worsened and I need to get back on medications " Remarks: Reviewed electronic medical record and discussed with nursing staff. Rounded with FALLON Islas. Patient is preoccupied with discharge. According to the record she was suppose to discharged yesterday and their was some confusion regarding the discharge plan. Patient is now blaming the staff and claims they blocked her discharge. ODELL Montero spoke with the grandmother and she is willing to take the patient in for a few days. When Kylah shared this with the patient she became oppositional and [facility] [place] [facility] her [facility]. Kylah and I spoke with Dr. Oro and due the patients comments and derailment will not discharge the patient today. Dr. Giles will be back tomorrow and assess a safe discharge plan. Review of Systems All other systems reviewed negative except as stated in HPI Mental Status Examination Appearance: Appropriate Consciousness: Alert Orientation: x4 Motor Activity: Normal gait Speech: Unremarkable Language: Adequate Fund of Knowledge: Adequate Attention and Concentration: Adequate Memory: Unremarkable Mood: Appropriate Affect: Appropriate Thought Process & Associations: Intact Thought Content: Appropriate Hallucination Type: None Delusion Type: None Suicidal Ideation: No Suicidal Plan: No Suicidal Intention: No Homicidal Ideation: No Homicidal Plan: No Homicidal Intention: No Insight: Adequate Judgment: Adequate Assessment and Plan - Assessment (1) Mood disorder Code(s): F39 - Unspecified mood [affective] disorder Status: Acute (2) PTSD (post-traumatic stress disorder) Code(s): F43.10 - Post-traumatic stress disorder, unspecified Status: Chronic (3) Cocaine abuse Code(s): F14.10 - Cocaine abuse, uncomplicated Status: Acute (4) Alcohol dependence Code(s): F10.20 - Alcohol dependence, uncomplicated Status: Chronic - Plan Plan: 06/21/18 Dr. Jimenez cancelled discharge order. ODELL Montero called the grandmother and she was willing to take the patient in for a few days. When Kylah told the patient she became oppositional and [facility] [place]. Patient is making comments about the staff and derailing the conversation. Kylah and I spoke to Dr. Oro and due to the patients presentation today will not discharge her at this time. Dr. Giles will be back tomorrow and can re-assess patient for safe discharge. Justification for Continued Inpatient Stay: Moving patient to a less restrictive environment may result in her decompensation.
[2018-06-21] MEDS: Acetaminophen 325 MG Tablet PO PRN (14:20)
[2018-06-21] MEDS: QUEtiapine 100 MG Tablet PO SCH (20:26)
[2018-06-22 06:02] VITALS: BP 95/71; PULSE 84; RESP 17; TEMP 98.7; O2SAT 99
[2018-06-22] MEDS: Naproxen 500 MG Tablet PO SCH (08:05)
[2018-06-22] MEDS: Sertraline 100 MG Tablet PO SCH (08:05)
[2018-06-22] MEDS ORDERED: QUEtiapine 25 MG Tablet PO SCH (11:00)
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
[2018-06-22] MEDS: Acetaminophen 325 MG Tablet PO PRN (14:22)
== END 2018-06-22 14:30 | disposition home or self-care (01) | DRG 885 ==
LOC: H270 16:38 → H260 06-12 14:14 → H270 06-21 15:09
PROVIDERS: ADMIT Psychiatry & Neurology Psychiatry; ATTEND Psychiatry & Neurology Psychiatry